=== PATIENT | male | born 1985 | race Caucasian/White ===

== ENCOUNTER → 2024-06-26 09:31 | Outpatient (REF) | payer BC, SELFPAY | LOC: RCS 09:31 | PROVIDERS: ATTENDING PHYSICIAN Internal Medicine Cardiovascular Disease; FAMILY PHYSICIAN Internal Medicine | DX: R94.31 Abnormal electrocardiogram [ECG] [EKG] (principal); R07.89 Other chest pain | CPT/HCPCS: 93017; 93350 ==